=== PATIENT | female | born 1935 | race Caucasian/White ===

== ENCOUNTER 2016-11-15 15:00 | Outpatient (RCR) | payer MEDICARE, BC ==
[2016-09-21 06:21] VITALS: BP 114/56
[~2016-11-15 15:00] MED LIST: B-6100 MG PO; BIO-TN500 MCG PO; CALCIUM + D 6001 TA1 PO; COD LIVER OIL1 CAP PO; EVENING PRIMRO500 MG PO; FISH OIL1000 MG PO; FLUOROMETHOLONE OP; FLUOROMETHOLONE5 M1 OP; FOLIC ACID0.8 MG PO; GELATIN CAPSUL650 MG PO; HAIR, SKIN & N1 EACH PO; LUTEIN + KALE 11 CAP PO; MAGNESIUM500 MG PO; MASON NATURAL L20 MG PO; NORCO 325 MG-51 TAB PO; PREMARIN0.45 MG PO; ST. JOSEPH81 M2 PO; TIMOLOL OPHTHALMIC OU; TYLENOL 500MG500 MG PO; VIACTIV CALCIUM1 CTB PO; VITAMIN B-6100 MG PO; VITAMIN C PUR1000 MG PO; VITAMIN D31000 I1 PO; XARELTO10 MG PO; Xarelto PO; ZINC50 M1 PO; [UNRECOGNIZED DRUG - CODE] PO; [UNRECOGNIZED DRUG - OTHER]; [UNRECOGNIZED DRUG - OTHER] PO
== END 2016-11-28 08:00 | disposition home or self-care (01) ==
LOC: PT 15:00
DX: Z47.1 Aftercare following joint replacement surgery (principal); Z96.651 Presence of right artificial knee joint

== ENCOUNTER → 2017-01-22 | Day surgery (SDC) | payer MEDICARE, BC | LOC: MSO 07:41 | DX: K92.1 Melena (principal); K57.31 Diverticulosis of large intestine without perforation or abscess with bleeding | CPT/HCPCS: 00810; J7120 ==

== ENCOUNTER → 2017-10-11 | Outpatient (CLI) | payer MEDICARE, BC ==
[2016-09-21 06:21] VITALS: BP 114/56
[2017-10-11 16:24] LABS: ALBUMIN 4.2 g/dL (3.5-5.0); BUN/CREATININE RATIO 40.3 (6.0-26.0); CALCIUM 9.5 mg/dL (8.4-10.2); POTASSIUM 4.2 mmol/L (3.6-5.0); TOTAL BILIRUBIN 0.8 mg/dL (0.2-1.3); TOTAL PROTEIN 7.7 g/dL (6.3-8.2)
[2017-10-11 16:26] LABS: HEMATOCRIT 44.5 % (37.0-47.0); HEMOGLOBIN 14.4 g/dL (12.5-16.0); MEAN CELL VOLUME 91 fl (78-100); MEAN CORPUSCULAR HEMOGLOBIN 29 pg (27-31); MEAN CORPUSCULAR HGB CONC 32 g/dL (33-37); MEAN PLATELET VOLUME 10.6 fl (7.4-10.4); PLATELET COUNT 247 K/mm3 (130-400); RED BLOOD COUNT 4.91 M/mm3 (4.10-5.30); RED CELL DISTRIBUTION WIDTH 14.2 % (11.5-14.5); WHITE BLOOD COUNT 6.6 K/mm3 (4.8-10.8)
[2017-10-11 18:03] LABS: LYMPHOCYTE 41 % (20-51); MONOCYTE 10 % (3-10); NEUTROPHILS 47 % (42-75)
== END ==
LOC: LAB 15:54
PROVIDERS: Internal Medicine
DX: M85.80 Other specified disorders of bone density and structure, unspecified site (principal); E05.90 Thyrotoxicosis, unspecified without thyrotoxic crisis or storm; E78.5 Hyperlipidemia, unspecified

== ENCOUNTER → 2018-10-14 | Outpatient (CLI) | payer MEDICARE, BC ==
[2016-09-21 06:21] VITALS: BP 114/56
[2018-10-14 09:35] LABS: BASO # 0.1 (0.02-0.10); EOS # 0.2 (0.04-0.40); EOS % 3.7 % (1.0-5.0); HEMATOCRIT 44.3 % (37.0-47.0); HEMOGLOBIN 14.2 g/dL (12.5-16.0); LYMPH# 1.9 (1.50-4.00); MEAN CELL VOLUME 91 fl (78-100); MEAN CORPUSCULAR HEMOGLOBIN 29 pg (27-31); MEAN CORPUSCULAR HGB CONC 32 g/dL (33-37); MEAN PLATELET VOLUME 10.6 fl (7.4-10.4); MONO # 0.8 (0.20-0.80); NEU # 3.6 (1.40-6.50); PLATELET COUNT 215 K/mm3 (130-400); RED BLOOD COUNT 4.89 M/mm3 (4.10-5.30); RED CELL DISTRIBUTION WIDTH 14.5 % (11.5-14.5); WHITE BLOOD COUNT 6.5 K/mm3 (4.8-10.8)
[2018-10-14 09:43] LABS: ALBUMIN 4.4 g/dL (3.5-5.0); CALCIUM 9.7 mg/dL (8.4-10.2); POTASSIUM 4.2 mmol/L (3.6-5.0); TOTAL PROTEIN 7.4 g/dL (6.3-8.2)
[2018-10-14 10:44] LABS: ERYTHROCYTE SEDIMENTATION RATE 13 mm/hr (0-30)
== END ==
LOC: LAB 09:16
PROVIDERS: Internal Medicine
DX: E78.2 Mixed hyperlipidemia (principal); M85.80 Other specified disorders of bone density and structure, unspecified site; E05.90 Thyrotoxicosis, unspecified without thyrotoxic crisis or storm

== ENCOUNTER → 2018-11-07 | Outpatient (CLI) | payer MEDICARE, BC ==
[2016-09-21 06:21] VITALS: BP 114/56
[2018-11-07 08:52] LABS: HEMATOCRIT 41.8 % (37.0-47.0); HEMOGLOBIN 13.4 g/dL (12.5-16.0); MEAN CELL VOLUME 92 fl (78-100); MEAN CORPUSCULAR HEMOGLOBIN 30 pg (27-31); MEAN CORPUSCULAR HGB CONC 32 g/dL (33-37); MEAN PLATELET VOLUME 10.6 fl (7.4-10.4); PLATELET COUNT 235 K/mm3 (130-400); RED BLOOD COUNT 4.53 M/mm3 (4.10-5.30); RED CELL DISTRIBUTION WIDTH 14.6 % (11.5-14.5); WHITE BLOOD COUNT 9.5 K/mm3 (4.8-10.8)
[2018-11-07 09:17] LABS: ALBUMIN 3.7 g/dL (3.5-5.0); CALCIUM 8.9 mg/dL (8.4-10.2); POTASSIUM 4.2 mmol/L (3.6-5.0); TOTAL BILIRUBIN 0.8 mg/dL (0.2-1.3); TOTAL PROTEIN 6.7 g/dL (6.3-8.2)
[2018-11-07 09:23] LABS: URINE APPEARANCE CLEAR; URINE COLOR YELLOW
[2018-11-07 09:24] LABS: URINE BILIRUBIN NEGATIVE (NEGATIVE); URINE BLOOD NEGATIVE (NEGATIVE); URINE GLUCOSE NEGATIVE (NEGATIVE); URINE KETONE NEGATIVE (NEGATIVE); URINE LEUKOCYTE ESTERASE NEGATIVE (NEGATIVE); URINE MUCUS PRESENT (NOT PRESENT); URINE NITRATE NEGATIVE (NEGATIVE); URINE PROTEIN(semi-quant) TRACE mg/dL (NEGATIVE); URINE UROBILINOGEN NORMAL (NORMAL)
[2018-11-07 10:03] LABS: LYMPHOCYTE 15 % (20-51); MONOCYTE 15 % (3-10); NEUTROPHILS 70 % (42-75)
== END ==
LOC: LAB 08:33
PROVIDERS: Internal Medicine
DX: R10.84 Generalized abdominal pain (principal)

== ENCOUNTER 2018-12-24 07:15 | Emergency (ER) | payer MEDICARE, BC ==
[~2018-12-24 07:15] MED LIST changes: -BIO-TN500 MCG PO; +BIOTIN5000 MC1 PO; +PHARMASSURE ZIN50 MG PO; +VITAMIN A8000 UNIT; -ZINC50 M1 PO; -[UNRECOGNIZED DRUG - CODE] PO
[2018-12-24 08:08] LABS: ALBUMIN 3.9 g/dL (3.5-5.0); HEMATOCRIT 42.9 % (37.0-47.0); HEMOGLOBIN 13.8 g/dL (12.5-16.0); MEAN CELL VOLUME 89 fl (78-100); MEAN CORPUSCULAR HEMOGLOBIN 29 pg (27-31); MEAN CORPUSCULAR HGB CONC 32 g/dL (33-37); MEAN PLATELET VOLUME 9.9 fl (7.4-10.4); PLATELET COUNT 248 K/mm3 (130-400); POTASSIUM 4.4 mmol/L (3.6-5.0); RED BLOOD COUNT 4.82 M/mm3 (4.10-5.30); RED CELL DISTRIBUTION WIDTH 13.9 % (11.5-14.5); TOTAL BILIRUBIN 0.5 mg/dL (0.2-1.3); TOTAL PROTEIN 7.2 g/dL (6.3-8.2); WHITE BLOOD COUNT 5.6 K/mm3 (4.8-10.8)
[2018-12-24 08:09] LABS: LYMPHOCYTE 34 % (20-51); MONOCYTE 8 % (3-10); NEUTROPHILS 53 % (42-75)
[2018-12-24 08:30] LABS: URINE APPEARANCE CLEAR; URINE BILIRUBIN NEGATIVE (NEGATIVE); URINE BLOOD NEGATIVE (NEGATIVE); URINE COLOR YELLOW; URINE GLUCOSE NEGATIVE (NEGATIVE); URINE KETONE SMALL (NEGATIVE); URINE LEUKOCYTE ESTERASE NEGATIVE (NEGATIVE); URINE NITRATE NEGATIVE (NEGATIVE); URINE PROTEIN(semi-quant) TRACE mg/dL (NEGATIVE); URINE UROBILINOGEN NORMAL (NORMAL); URINE WBC 0-1 /hpf (0-3)
[2018-12-24] MEDS ORDERED: LEVOFLOXACIN500 M1 PO (08:50)
[2018-12-24] MEDS ORDERED: ASPIR LOW81 MG PO (08:58)
[2018-12-24] MEDS ORDERED: TESSALON PERLE100 M1 PO (09:43)
[2018-12-24 10:10] VITALS: BP 122/67
== END 2018-12-24 10:10 | disposition home or self-care (01) ==
LOC: ED 07:15
PROVIDERS: Physician Assistant
DX: R07.89 Other chest pain (principal); H40.9 Unspecified glaucoma; Z79.82 Long term (current) use of aspirin; Z87.891 Personal history of nicotine dependence; Z96.653 Presence of artificial knee joint, bilateral; Z90.49 Acquired absence of other specified parts of digestive tract; Z90.710 Acquired absence of both cervix and uterus
CPT/HCPCS: J1885

== ENCOUNTER → 2019-10-16 | Outpatient (CLI) | payer MEDICARE, BC ==
[~2019-10-16] MED LIST changes: +ASPIR LOW81 MG PO; +LEVOFLOXACIN500 M1 PO; +TESSALON PERLE100 M1 PO
[2019-10-16 10:04] LABS: BASO # 0.1 (0.02-0.10); EOS # 0.1 (0.04-0.40); EOS % 2.2 % (1.0-5.0); HEMATOCRIT 44.4 % (37.0-47.0); HEMOGLOBIN 14.3 g/dL (12.5-16.0); LYMPH# 1.7 (1.50-4.00); MEAN CELL VOLUME 90 fl (78-100); MEAN CORPUSCULAR HEMOGLOBIN 29 pg (27-31); MEAN CORPUSCULAR HGB CONC 32 g/dL (33-37); MEAN PLATELET VOLUME 10.3 fl (7.4-10.4); MONO # 0.6 (0.20-0.80); NEU # 3.9 (1.40-6.50); PLATELET COUNT 223 K/mm3 (130-400); RED BLOOD COUNT 4.91 M/mm3 (4.10-5.30); RED CELL DISTRIBUTION WIDTH 14.1 % (11.5-14.5); WHITE BLOOD COUNT 6.5 K/mm3 (4.8-10.8)
[2019-10-16 10:37] LABS: POTASSIUM 4.2 mmol/L (3.5-5.1)
[2019-10-16 10:38] LABS: ALBUMIN 4.1 g/dL (3.4-4.8)
[2019-10-16 10:40] LABS: TOTAL PROTEIN 7.3 g/dL (6.2-8.1)
[2019-10-16 10:42] LABS: TOTAL BILIRUBIN 0.9 mg/dL (0.2-1.2)
[2019-10-16 11:18] LABS: ERYTHROCYTE SEDIMENTATION RATE 10 mm/hr (0-30)
== END ==
LOC: LAB 09:51
PROVIDERS: Internal Medicine
DX: E78.2 Mixed hyperlipidemia (principal); E05.90 Thyrotoxicosis, unspecified without thyrotoxic crisis or storm; M85.80 Other specified disorders of bone density and structure, unspecified site

== ENCOUNTER → 2019-12-31 | Outpatient (CLI) | payer MEDICARE, BC | LOC: MAMMO 12-16 09:15 | DX: M85.80 Other specified disorders of bone density and structure, unspecified site (principal) ==

== ENCOUNTER → 2020-04-29 | Outpatient (CLI) | payer MEDICARE, BC ==
[2020-04-29 12:32] LABS: HEMATOCRIT 42.9 % (37.0-47.0); HEMOGLOBIN 13.6 g/dL (12.5-16.0); MEAN CELL VOLUME 92 fl (78-100); MEAN CORPUSCULAR HEMOGLOBIN 29 pg (27-31); MEAN CORPUSCULAR HGB CONC 32 g/dL (33-37); MEAN PLATELET VOLUME 11.1 fl (7.4-10.4); PLATELET COUNT 234 K/mm3 (130-400); RED BLOOD COUNT 4.68 M/mm3 (4.10-5.30); RED CELL DISTRIBUTION WIDTH 14.3 % (11.5-14.5); WHITE BLOOD COUNT 8.2 K/mm3 (4.8-10.8)
[2020-04-29 12:36] LABS: ALBUMIN 3.7 g/dL (3.4-4.8)
[2020-04-29 12:38] LABS: CALCIUM 9.1 mg/dL (8.3-10.5)
[2020-04-29 12:41] LABS: TOTAL BILIRUBIN 0.8 mg/dL (0.2-1.2)
[2020-04-29 13:01] LABS: LYMPHOCYTE 22 % (20-51); MONOCYTE 19 % (3-10); NEUTROPHILS 54 % (42-75)
== END ==
LOC: LAB 11:21
PROVIDERS: Nurse Practitioner Family
DX: R53.83 Other fatigue (principal); R50.9 Fever, unspecified; Z20.828 Contact with and (suspected) exposure to other viral communicable diseases

== ENCOUNTER → 2020-05-03 | Outpatient (CLI) | payer MEDICARE, BC ==
[2020-05-03 11:06] LABS: HEMATOCRIT 41.1 % (37.0-47.0); MEAN CELL VOLUME 92 fl (78-100); MEAN CORPUSCULAR HEMOGLOBIN 29 pg (27-31); MEAN CORPUSCULAR HGB CONC 32 g/dL (33-37); PLATELET COUNT 278 K/mm3 (130-400); RED BLOOD COUNT 4.48 M/mm3 (4.10-5.30); RED CELL DISTRIBUTION WIDTH 13.8 % (11.5-14.5); WHITE BLOOD COUNT 8.1 K/mm3 (4.8-10.8)
[2020-05-03 11:19] LABS: ALBUMIN 3.6 g/dL (3.4-4.8); POTASSIUM 4.5 mmol/L (3.5-5.1)
[2020-05-03 11:21] LABS: CALCIUM 9.1 mg/dL (8.3-10.5)
[2020-05-03 11:22] LABS: TOTAL PROTEIN 7.1 g/dL (6.2-8.1)
[2020-05-03 11:24] LABS: TOTAL BILIRUBIN 0.5 mg/dL (0.2-1.2)
[2020-05-03 11:39] LABS: URINE APPEARANCE CLOUDY; URINE BILIRUBIN NEGATIVE (NEGATIVE); URINE BLOOD NEGATIVE (NEGATIVE); URINE COLOR YELLOW; URINE GLUCOSE NEGATIVE (NEGATIVE); URINE KETONE NEGATIVE (NEGATIVE); URINE LEUKOCYTE ESTERASE NEGATIVE (NEGATIVE); URINE MUCUS PRESENT (NOT PRESENT); URINE NITRATE NEGATIVE (NEGATIVE); URINE PROTEIN(semi-quant) NEGATIVE (NEGATIVE); URINE UROBILINOGEN NORMAL (NORMAL)
[2020-05-03 12:19] LABS: ERYTHROCYTE SEDIMENTATION RATE 46 mm/hr (0-30)
[2020-05-03 14:11] LABS: LYMPHOCYTE 14 % (20-51); MONOCYTE 13 % (3-10); NEUTROPHILS 68 % (42-75)
== END ==
LOC: LAB 10:46
PROVIDERS: Internal Medicine
DX: R50.9 Fever, unspecified (principal); R06.02 Shortness of breath; R07.9 Chest pain, unspecified

== ENCOUNTER → 2020-07-01 | Outpatient (CLI) | payer MEDICARE, BC | LOC: RAD 16:03 | DX: M19.90 Unspecified osteoarthritis, unspecified site (principal) ==

== ENCOUNTER → 2020-10-18 | Outpatient (CLI) | payer MEDICARE, BC ==
[2020-07-11 09:01] VITALS: BP 137/78
[~2020-10-18] MED LIST changes: -ASPIR LOW81 MG PO; +ASPIRIN E.C. 8181 MG PO; +CALCIUM CITRATE1 TA1 PO; -EVENING PRIMRO500 MG PO; +LATANOPROST 2.2.5 ML OD; +MAGNESIUM OXID500 MG PO; -MAGNESIUM500 MG PO; +OR USE ONLY TIMO OU; -TIMOLOL OPHTHALMIC OU; -VITAMIN B-6100 MG PO; +VITAMIN B-625 M1; +[UNRECOGNIZED DRUG - OTHER]
[2020-10-18 10:37] LABS: POTASSIUM 4.1 mmol/L (3.5-5.1)
[2020-10-18 10:38] LABS: ALBUMIN 3.8 g/dL (3.4-4.8); EOS # 0.2 (0.04-0.40); EOS % 3.7 % (1.0-5.0); HEMATOCRIT 43.2 % (37.0-47.0); HEMOGLOBIN 13.3 g/dL (12.5-16.0); LYMPH# 1.6 (1.50-4.00); MEAN CELL VOLUME 91 fl (78-100); MEAN CORPUSCULAR HEMOGLOBIN 28 pg (27-31); MEAN CORPUSCULAR HGB CONC 31 g/dL (33-37); MEAN PLATELET VOLUME 10.8 fl (7.4-10.4); MONO # 0.6 (0.20-0.80); NEU # 3.5 (1.40-6.50); PLATELET COUNT 202 K/mm3 (130-400); RED BLOOD COUNT 4.73 M/mm3 (4.10-5.30); RED CELL DISTRIBUTION WIDTH 15.9 % (11.5-14.5)
[2020-10-18 10:39] LABS: CALCIUM 8.9 mg/dL (8.3-10.5)
[2020-10-18 10:40] LABS: TOTAL PROTEIN 6.6 g/dL (6.2-8.1)
[2020-10-18 10:42] LABS: TOTAL BILIRUBIN 0.6 mg/dL (0.2-1.2)
== END ==
LOC: LAB 09:50
PROVIDERS: Internal Medicine
DX: M85.80 Other specified disorders of bone density and structure, unspecified site (principal); E78.2 Mixed hyperlipidemia; E05.90 Thyrotoxicosis, unspecified without thyrotoxic crisis or storm

== ENCOUNTER 2020-10-26 08:48 | Outpatient (RCR) | payer MEDICARE, BC ==
[2020-07-11 09:01] VITALS: BP 137/78
== END 2020-11-15 | disposition home or self-care (01) ==
LOC: PT
DX: L57.0 Actinic keratosis (principal); R26.81 Unsteadiness on feet; R39.15 Urgency of urination

== ENCOUNTER → 2020-12-17 | Outpatient (CLI) | payer MEDICARE, BC ==
[2020-07-11 09:01] VITALS: BP 137/78
[2020-12-17 10:29] LABS: HEMOGLOBIN 14.5 g/dL (12.5-16.0); MEAN CELL VOLUME 93 fl (78-100); MEAN CORPUSCULAR HEMOGLOBIN 29 pg (27-31); MEAN CORPUSCULAR HGB CONC 32 g/dL (33-37); MEAN PLATELET VOLUME 10.1 fl (7.4-10.4); PLATELET COUNT 225 K/mm3 (130-400); RED BLOOD COUNT 4.97 M/mm3 (4.10-5.30); RED CELL DISTRIBUTION WIDTH 14.9 % (11.5-14.5); WHITE BLOOD COUNT 10.9 K/mm3 (4.8-10.8)
[2020-12-17 10:38] LABS: ALBUMIN 4.1 g/dL (3.4-4.8); POTASSIUM 3.8 mmol/L (3.5-5.1)
[2020-12-17 10:39] LABS: CALCIUM 9.1 mg/dL (8.3-10.5)
[2020-12-17 10:40] LABS: TOTAL PROTEIN 7.5 g/dL (6.2-8.1)
[2020-12-17 10:42] LABS: TOTAL BILIRUBIN 1.1 mg/dL (0.2-1.2)
[2020-12-17 10:57] LABS: URINE APPEARANCE CLOUDY; URINE COLOR YELLOW
[2020-12-17 10:58] LABS: URINE BILIRUBIN NEGATIVE (NEGATIVE); URINE BLOOD 250 ery/uL (NEGATIVE); URINE GLUCOSE NEGATIVE (NEGATIVE); URINE KETONE NEGATIVE (NEGATIVE); URINE LEUKOCYTE ESTERASE 2+ (NEGATIVE); URINE NITRATE POSITIVE (NEGATIVE); URINE PROTEIN(semi-quant) 1+ mg/dL (NEGATIVE); URINE UROBILINOGEN NORMAL (NORMAL); URINE WBC >50 /hpf (0-3)
[2020-12-17 11:10] LABS: LYMPHOCYTE 16 % (20-51); MONOCYTE 13 % (3-10); NEUTROPHILS 71 % (42-75); SPHEROCYTE 1+; TEAR DROP CELLS 2+
== END ==
LOC: LAB 10:15
PROVIDERS: Internal Medicine
DX: R50.9 Fever, unspecified (principal)

== ENCOUNTER → 2021-03-16 | Outpatient (CLI) | payer MEDICARE, BC ==
[2020-07-11 09:01] VITALS: BP 137/78
== END ==
LOC: RAD 12:20
DX: M79.672 Pain in left foot (principal)

== ENCOUNTER → 2021-10-21 | Outpatient (CLI) | payer MEDICARE, BC ==
[2021-10-21 10:08] LABS: BASO # 0.05 K/mm3 (0.02-0.10); EOS # 0.23 K/mm3 (0.04-0.40); EOS % 3.3 % (1.0-5.0); HEMATOCRIT 46.8 % (37.0-47.0); HEMOGLOBIN 14.5 g/dL (12.5-16.0); LYMPH# 1.67 K/mm3 (1.50-4.00); MEAN CELL VOLUME 93 fl (78-100); MEAN CORPUSCULAR HEMOGLOBIN 29 pg (27-31); MEAN CORPUSCULAR HGB CONC 31 g/dL (33-37); MONO # 0.79 K/mm3 (0.20-0.80); NEU # 4.16 K/mm3 (1.40-6.50); PLATELET COUNT 233 K/mm3 (130-400); RED BLOOD COUNT 5.02 M/mm3 (4.10-5.30); RED CELL DISTRIBUTION WIDTH 14.1 % (11.5-14.5); WHITE BLOOD COUNT 6.9 K/mm3 (4.8-10.8)
[2021-10-21 10:17] LABS: POTASSIUM 4.4 mmol/L (3.5-5.1)
[2021-10-21 10:19] LABS: CALCIUM 9.5 mg/dL (8.3-10.5)
[2021-10-21 10:20] LABS: TOTAL PROTEIN 7.7 g/dL (6.2-8.1)
[2021-10-21 10:22] LABS: TOTAL BILIRUBIN 0.8 mg/dL (0.2-1.2)
== END ==
LOC: LAB 09:50
PROVIDERS: Internal Medicine
DX: Z12.11 Encounter for screening for malignant neoplasm of colon (principal); E05.90 Thyrotoxicosis, unspecified without thyrotoxic crisis or storm; M85.80 Other specified disorders of bone density and structure, unspecified site; E78.2 Mixed hyperlipidemia

== ENCOUNTER → 2021-10-26 | Outpatient (CLI) | payer MEDICARE, BC | LOC: RAD 09:56 | DX: M19.011 Primary osteoarthritis, right shoulder (principal) ==

== ENCOUNTER → 2021-11-21 | Outpatient (CLI) | payer MEDICARE, BC | LOC: LAB 09:56 | DX: Z12.11 Encounter for screening for malignant neoplasm of colon (principal) ==

== ENCOUNTER → 2021-12-20 | Outpatient (CLI) | payer MEDICARE, BC | LOC: RAD 10:39 → MAMMO 10:45 | DX: M81.0 Age-related osteoporosis without current pathological fracture (principal); M85.80 Other specified disorders of bone density and structure, unspecified site; Z78.0 Asymptomatic menopausal state ==

== ENCOUNTER 2022-01-04 09:20 | Emergency (ER) | payer MEDICARE, BC ==
[~2022-01-04] VITALS: Ht 162.6 cm; Wt 80.8 kg
[~2022-01-04 09:20] MED LIST changes: +PHARMASSURE VI100 MG PO; -PHARMASSURE ZIN50 MG PO; +VITAMIN A2400 MCG PO; -VITAMIN A8000 UNIT; -VITAMIN B-625 M1; +ZINC-22050 MG PO; -[UNRECOGNIZED DRUG - OTHER]; +[UNRECOGNIZED DRUG - OTHER] PO
[2022-01-04] MEDS ORDERED: MULTI-VITAMIN1 EACH PO (09:58)
[2022-01-04 10:55] LABS: HEMATOCRIT 43.7 % (37.0-47.0); HEMOGLOBIN 13.9 g/dL (12.5-16.0)
[2022-01-04 11:47] VITALS: BP 136/68
== END 2022-01-04 11:47 | disposition home or self-care (01) ==
LOC: ED 09:20
PROVIDERS: Family Medicine
DX: R04.0 Epistaxis (principal)

== ENCOUNTER → 2022-01-30 | Outpatient (CLI) | payer MEDICARE, BC ==
[~2022-01-30] MED LIST changes: +MULTI-VITAMIN1 EACH PO
== END ==
LOC: RAD 11:17
DX: M51.34 Other intervertebral disc degeneration, thoracic region (principal); M41.84 Other forms of scoliosis, thoracic region

== ENCOUNTER 2022-02-06 11:00 | Outpatient (RCR) | payer MEDICARE, BC | END 2022-02-09 | disposition still patient (30) | LOC: PT | DX: M54.31 Sciatica, right side (principal) ==

== ENCOUNTER 2022-02-14 08:22 | Outpatient (RCR) | payer MEDICARE, BC | END 2022-02-28 17:00 | disposition still patient (30) | LOC: PT 08:22 | DX: M54.31 Sciatica, right side (principal) ==

== ENCOUNTER 2022-06-19 07:56 | Emergency (ER) | payer MEDICARE, BC ==
[~2022-06-19] VITALS: Ht 160 cm; Wt 74.2 kg
[2022-06-19 08:51] LABS: BASO # 0.05 K/mm3 (0.02-0.10); EOS # 0.15 K/mm3 (0.04-0.40); EOS % 2.5 % (1.0-5.0); LYMPH# 1.45 K/mm3 (1.50-4.00); MEAN CELL VOLUME 91 fl (78-100); MEAN CORPUSCULAR HEMOGLOBIN 29 pg (27-31); MEAN CORPUSCULAR HGB CONC 32 g/dL (33-37); MEAN PLATELET VOLUME 9.9 fl (7.4-10.4); MONO # 0.79 K/mm3 (0.20-0.80); NEU # 3.46 K/mm3 (1.40-6.50); PLATELET COUNT 232 K/mm3 (130-400); RED BLOOD COUNT 4.86 M/mm3 (4.10-5.30); RED CELL DISTRIBUTION WIDTH 14.3 % (11.5-14.5); WHITE BLOOD COUNT 5.9 K/mm3 (4.8-10.8)
[2022-06-19 09:28] LABS: CALCIUM 9.6 mg/dL (8.3-10.5)
[2022-06-19 09:30] LABS: TOTAL PROTEIN 7.4 g/dL (6.2-8.1)
[2022-06-19 09:31] LABS: TOTAL BILIRUBIN 0.9 mg/dL (0.2-1.2)
[2022-06-19 09:35] LABS: URINE APPEARANCE HAZY; URINE BILIRUBIN NEGATIVE (NEGATIVE); URINE COLOR YELLOW; URINE GLUCOSE NEGATIVE (NEGATIVE); URINE KETONE 1+ (NEGATIVE); URINE PROTEIN(semi-quant) NEGATIVE (NEGATIVE); URINE UROBILINOGEN NORMAL (NORMAL)
[2022-06-19 09:36] LABS: URINE BLOOD 250 ery/uL (NEGATIVE); URINE LEUKOCYTE ESTERASE TRACE (NEGATIVE); URINE NITRATE POSITIVE (NEGATIVE)
[2022-06-19] MEDS ORDERED: METRONIDAZOLE500 M1 PO (12:07)
[2022-06-19] MEDS ORDERED: CIPRO500 M1 PO (12:07)
[2022-06-19 12:20] VITALS: BP 144/78
== END 2022-06-19 12:20 | disposition home or self-care (01) ==
LOC: ED 07:56
PROVIDERS: Nurse Practitioner
DX: N39.0 Urinary tract infection, site not specified (principal); K57.32 Diverticulitis of large intestine without perforation or abscess without bleeding; R93.89 Abnormal findings on diagnostic imaging of other specified body structures; N28.89 Other specified disorders of kidney and ureter; E66.9 Obesity, unspecified; Z68.29 Body mass index [BMI] 29.0-29.9, adult; Z90.49 Acquired absence of other specified parts of digestive tract; Z88.0 Allergy status to penicillin
CPT/HCPCS: J7030; Q9967

== ENCOUNTER → 2022-06-22 | Outpatient (CLI) | payer MEDICARE, BC ==
[~2022-06-22] MED LIST changes: +CIPRO500 M1 PO; +METRONIDAZOLE500 M1 PO
== END ==
LOC: RAD 07:58
DX: R39.15 Urgency of urination (principal)

== ENCOUNTER → 2022-06-29 | Outpatient (CLI) | payer MEDICARE, BC ==
[~2022-06-29] VITALS: Ht 160 cm; Wt 74.2 kg
[2022-06-29 10:22] VITALS: BP 141/70
== END ==
LOC: AMSURD 06-27 09:12
DX: M85.80 Other specified disorders of bone density and structure, unspecified site (principal)
CPT/HCPCS: J3489

== ENCOUNTER → 2022-06-29 | Outpatient (CLI) | payer MEDICARE, BC | LOC: RAD 09:00 | DX: K57.30 Diverticulosis of large intestine without perforation or abscess without bleeding (principal); Z90.49 Acquired absence of other specified parts of digestive tract; N28.9 Disorder of kidney and ureter, unspecified | CPT/HCPCS: Q9967 ==

== ENCOUNTER → 2022-07-05 | Outpatient (CLI) | payer MEDICARE, BC | LOC: RAD 10:43 | DX: M19.012 Primary osteoarthritis, left shoulder (principal) ==

== ENCOUNTER 2022-12-11 08:42 | Emergency (ER) | payer MEDICARE, BC ==
[2022-12-11 09:49] LABS: HEMATOCRIT 43.3 % (37.0-47.0); HEMOGLOBIN 13.8 g/dL (12.5-16.0)
[2022-12-11 10:28] VITALS: BP 137/69
== END 2022-12-11 10:35 | disposition home or self-care (01) ==
LOC: ED 08:42
PROVIDERS: Nurse Practitioner
DX: R04.0 Epistaxis (principal); Z28.310 Unvaccinated for COVID-19

== ENCOUNTER → 2023-01-04 | Outpatient (CLI) | payer MEDICARE, BC ==
[~2023-01-04] MED LIST changes: +BACTRIM DS TAB1 EACH PO; +MACROBID 100 M100 MG PO
[2023-01-04 11:08] LABS: URINE APPEARANCE CLEAR; URINE BILIRUBIN NEGATIVE (NEGATIVE); URINE BLOOD NEGATIVE (NEGATIVE); URINE COLOR YELLOW; URINE GLUCOSE NEGATIVE (NEGATIVE); URINE KETONE NEGATIVE (NEGATIVE); URINE LEUKOCYTE ESTERASE NEGATIVE (NEGATIVE); URINE MUCUS PRESENT (NOT PRESENT); URINE NITRATE NEGATIVE (NEGATIVE); URINE PROTEIN(semi-quant) NEGATIVE (NEGATIVE); URINE UROBILINOGEN NORMAL (NORMAL); URINE WBC 0-1 /hpf (0-3)
== END ==
LOC: LAB 10:06
PROVIDERS: Internal Medicine
DX: N39.0 Urinary tract infection, site not specified (principal)

== ENCOUNTER → 2023-02-28 | Outpatient (CLI) | payer MEDICARE, BC | LOC: RAD 02-27 08:00 | DX: R93.422 Abnormal radiologic findings on diagnostic imaging of left kidney (principal); R04.2 Hemoptysis | CPT/HCPCS: Q9967 ==

== ENCOUNTER → 2023-07-25 | Outpatient (CLI) | payer MEDICARE, BC | LOC: RAD 08:00 → LAB 08:24 | DX: M25.572 Pain in left ankle and joints of left foot (principal) ==

== ENCOUNTER 2023-08-26 20:00 | Emergency (ER) | payer MEDICARE, BC ==
[~2023-08-26] VITALS: Ht 165.1 cm; Wt 71.8 kg
[2023-08-26 20:41] LABS: BASO # 0.04 K/mm3 (0.02-0.10); EOS # 0.19 K/mm3 (0.04-0.40); EOS % 2.8 % (1.0-5.0); HEMOGLOBIN 13.9 g/dL (12.5-16.0); LYMPH# 1.79 K/mm3 (1.50-4.00); MEAN CELL VOLUME 92 fl (78-100); MEAN CORPUSCULAR HEMOGLOBIN 30 pg (27-31); MEAN CORPUSCULAR HGB CONC 32 g/dL (33-37); MEAN PLATELET VOLUME 10.2 fl (7.4-10.4); NEU # 3.83 K/mm3 (1.40-6.50); PLATELET COUNT 204 K/mm3 (130-400); RED BLOOD COUNT 4.67 M/mm3 (4.10-5.30); RED CELL DISTRIBUTION WIDTH 14.4 % (11.5-14.5); WHITE BLOOD COUNT 6.9 K/mm3 (4.8-10.8)
[2023-08-26 20:49] LABS: ALBUMIN 3.8 g/dL (3.4-4.8)
[2023-08-26 20:50] LABS: POTASSIUM 3.8 mmol/L (3.5-5.1)
[2023-08-26 20:51] LABS: CALCIUM 9.3 mg/dL (8.3-10.5)
[2023-08-26 20:52] LABS: TOTAL PROTEIN 6.7 g/dL (6.2-8.1)
[2023-08-26 20:54] LABS: TOTAL BILIRUBIN 0.5 mg/dL (0.2-1.2)
[2023-08-26 21:04] LABS: PARTIAL THROMBOPLASTIN TIME 21.6 SECONDS (21.0-32.0); PROTHROMBIN TIME 10.1 SECONDS (9.0-12.0)
[2023-08-26 23:25] LABS: URINE APPEARANCE CLOUDY; URINE BILIRUBIN NEGATIVE (NEGATIVE); URINE COLOR YELLOW; URINE GLUCOSE NEGATIVE (NEGATIVE); URINE KETONE NEGATIVE (NEGATIVE); URINE PROTEIN(semi-quant) TRACE (NEGATIVE); URINE UROBILINOGEN NORMAL (NORMAL)
[2023-08-26 23:26] LABS: URINE BLOOD TRACE (NEGATIVE); URINE LEUKOCYTE ESTERASE 2+ (NEGATIVE); URINE NITRATE POSITIVE (NEGATIVE); URINE WBC >50 /hpf (0-3)
[2023-08-26 23:50] VITALS: BP 143/72
== END 2023-08-26 23:50 | disposition short-term general hospital (02) ==
LOC: ED 20:00
PROVIDERS: Physician Assistant
DX: S52.502A Unspecified fracture of the lower end of left radius, initial encounter for closed fracture (principal); E66.9 Obesity, unspecified; Z68.26 Body mass index [BMI] 26.0-26.9, adult; Z87.891 Personal history of nicotine dependence; W01.0XXA Fall on same level from slipping, tripping and stumbling without subsequent striking against object, initial encounter
CPT/HCPCS: J2405; J3010

== ENCOUNTER 2023-09-14 13:47 | Outpatient (RCR) | payer MEDICARE, BC | END 2023-10-11 | disposition home or self-care (01) | LOC: OT | DX: M19.072 Primary osteoarthritis, left ankle and foot (principal) ==

== ENCOUNTER → 2023-11-07 | Outpatient (CLI) | payer MEDICARE, BC ==
[~2023-11-07] VITALS: Ht 165.1 cm; Wt 72.7 kg
[2023-11-07 10:44] VITALS: BP 155/79
== END ==
LOC: AMSURD 10:07
DX: M85.80 Other specified disorders of bone density and structure, unspecified site (principal)
CPT/HCPCS: J3489

== ENCOUNTER → 2023-12-03 | Outpatient (CLI) | payer MEDICARE, BC | LOC: RAD 08:40 | DX: N28.89 Other specified disorders of kidney and ureter (principal); R59.0 Localized enlarged lymph nodes | CPT/HCPCS: Q9967 ==

== ENCOUNTER → 2024-01-25 | Outpatient (CLI) | payer MEDICARE, BC ==
[2024-01-25 09:50] LABS: BASO # 0.05 K/mm3 (0.02-0.10); EOS # 0.19 K/mm3 (0.04-0.40); EOS % 2.9 % (1.0-5.0); HEMATOCRIT 44.2 % (37.0-47.0); HEMOGLOBIN 13.9 g/dL (12.5-16.0); LYMPH# 1.74 K/mm3 (1.50-4.00); MEAN CELL VOLUME 91 fl (78-100); MEAN CORPUSCULAR HEMOGLOBIN 29 pg (27-31); MEAN CORPUSCULAR HGB CONC 31 g/dL (33-37); MEAN PLATELET VOLUME 10.3 fl (7.4-10.4); MONO # 0.96 K/mm3 (0.20-0.80); NEU # 3.57 K/mm3 (1.40-6.50); PLATELET COUNT 257 K/mm3 (130-400); RED BLOOD COUNT 4.87 M/mm3 (4.10-5.30); RED CELL DISTRIBUTION WIDTH 13.4 % (11.5-14.5); WHITE BLOOD COUNT 6.5 K/mm3 (4.8-10.8)
[2024-01-25 09:54] LABS: ALBUMIN 3.9 g/dL (3.4-4.8)
[2024-01-25 09:56] LABS: CALCIUM 9.9 mg/dL (8.3-10.5)
[2024-01-25 09:57] LABS: TOTAL PROTEIN 7.6 g/dL (6.2-8.1)
[2024-01-25 09:59] LABS: TOTAL BILIRUBIN 0.4 mg/dL (0.2-1.2)
== END ==
LOC: LAB 09:25
PROVIDERS: Internal Medicine
DX: C65.2 Malignant neoplasm of left renal pelvis (principal)

== ENCOUNTER → 2024-01-30 | Outpatient (CLI) | payer MEDICARE, BC | LOC: RAD 13:07 | DX: J43.9 Emphysema, unspecified (principal); T81.30XD Disruption of wound, unspecified, subsequent encounter; C65.2 Malignant neoplasm of left renal pelvis; Z90.5 Acquired absence of kidney ==

== ENCOUNTER → 2024-02-07 | Outpatient (CLI) | payer MEDICARE, BC ==
[2024-02-07 14:33] LABS: BASO # 0.05 K/mm3 (0.02-0.10); EOS # 0.28 K/mm3 (0.04-0.40); EOS % 5.5 % (1.0-5.0); HEMOGLOBIN 12.8 g/dL (12.5-16.0); MEAN CELL VOLUME 91 fl (78-100); MEAN CORPUSCULAR HEMOGLOBIN 28 pg (27-31); MEAN CORPUSCULAR HGB CONC 31 g/dL (33-37); MEAN PLATELET VOLUME 9.9 fl (7.4-10.4); MONO # 0.77 K/mm3 (0.20-0.80); NEU # 2.25 K/mm3 (1.40-6.50); PLATELET COUNT 179 K/mm3 (130-400); RED BLOOD COUNT 4.51 M/mm3 (4.10-5.30); WHITE BLOOD COUNT 5.1 K/mm3 (4.8-10.8)
[2024-02-07 14:45] LABS: ALBUMIN 3.7 g/dL (3.4-4.8)
[2024-02-07 14:46] LABS: CALCIUM 9.3 mg/dL (8.3-10.5)
[2024-02-07 14:48] LABS: TOTAL PROTEIN 6.8 g/dL (6.2-8.1)
[2024-02-07 14:49] LABS: TOTAL BILIRUBIN 0.5 mg/dL (0.2-1.2)
== END ==
LOC: LAB 14:15
PROVIDERS: Internal Medicine
DX: C65.2 Malignant neoplasm of left renal pelvis (principal)

== ENCOUNTER → 2024-02-21 | Outpatient (CLI) | payer MEDICARE, BC ==
[2024-02-21 16:13] LABS: BASO # 0.06 K/mm3 (0.02-0.10); EOS # 0.28 K/mm3 (0.04-0.40); EOS % 4.8 % (1.0-5.0); HEMATOCRIT 42.5 % (37.0-47.0); HEMOGLOBIN 13.2 g/dL (12.5-16.0); LYMPH# 1.65 K/mm3 (1.50-4.00); MEAN CELL VOLUME 91 fl (78-100); MEAN CORPUSCULAR HEMOGLOBIN 28 pg (27-31); MEAN CORPUSCULAR HGB CONC 31 g/dL (33-37); MEAN PLATELET VOLUME 10.3 fl (7.4-10.4); MONO # 0.96 K/mm3 (0.20-0.80); NEU # 2.87 K/mm3 (1.40-6.50); PLATELET COUNT 210 K/mm3 (130-400); RED BLOOD COUNT 4.67 M/mm3 (4.10-5.30); RED CELL DISTRIBUTION WIDTH 14.4 % (11.5-14.5); WHITE BLOOD COUNT 5.8 K/mm3 (4.8-10.8)
[2024-02-21 16:20] LABS: ALBUMIN 3.9 g/dL (3.4-4.8)
[2024-02-21 16:22] LABS: CALCIUM 9.6 mg/dL (8.3-10.5)
[2024-02-21 16:23] LABS: TOTAL PROTEIN 6.7 g/dL (6.2-8.1)
[2024-02-21 16:25] LABS: TOTAL BILIRUBIN 0.5 mg/dL (0.2-1.2)
== END ==
LOC: LAB 16:01
PROVIDERS: Internal Medicine
DX: C65.2 Malignant neoplasm of left renal pelvis (principal)

== ENCOUNTER → 2024-03-13 | Outpatient (CLI) | payer MEDICARE, BC ==
[2024-03-13 15:36] LABS: BASO # 0.05 K/mm3 (0.02-0.10); EOS # 0.16 K/mm3 (0.04-0.40); HEMATOCRIT 41.5 % (37.0-47.0); HEMOGLOBIN 12.9 g/dL (12.5-16.0); LYMPH# 1.74 K/mm3 (1.50-4.00); MEAN CELL VOLUME 90 fl (78-100); MEAN CORPUSCULAR HEMOGLOBIN 28 pg (27-31); MEAN CORPUSCULAR HGB CONC 31 g/dL (33-37); MONO # 0.79 K/mm3 (0.20-0.80); NEU # 2.58 K/mm3 (1.40-6.50); PLATELET COUNT 265 K/mm3 (130-400); RED BLOOD COUNT 4.62 M/mm3 (4.10-5.30); RED CELL DISTRIBUTION WIDTH 14.4 % (11.5-14.5); WHITE BLOOD COUNT 5.3 K/mm3 (4.8-10.8)
[2024-03-13 15:45] LABS: ALBUMIN 3.9 g/dL (3.4-4.8)
[2024-03-13 15:47] LABS: CALCIUM 9.5 mg/dL (8.3-10.5)
[2024-03-13 15:48] LABS: TOTAL PROTEIN 7.3 g/dL (6.2-8.1)
[2024-03-13 15:50] LABS: TOTAL BILIRUBIN 0.6 mg/dL (0.2-1.2)
== END ==
LOC: LAB 15:21
PROVIDERS: Internal Medicine
DX: C65.2 Malignant neoplasm of left renal pelvis (principal)

== ENCOUNTER → 2024-03-27 | Outpatient (CLI) | payer MEDICARE, BC ==
[2024-05-13 12:56] LABS: CALCIUM 10.1 mg/dL (8.3-10.5); TOTAL BILIRUBIN 0.6 mg/dL (0.2-1.2); TOTAL PROTEIN 7.3 g/dL (6.2-8.1)
[2024-05-13 12:58] LABS: BASO # 0.06 K/mm3 (0.02-0.10); EOS # 0.25 K/mm3 (0.04-0.40); EOS % 4.5 % (1.0-5.0); HEMATOCRIT 44.1 % (37.0-47.0); HEMOGLOBIN 13.9 g/dL (12.5-16.0); LYMPH# 1.76 K/mm3 (1.50-4.00); MEAN CELL VOLUME 90 fl (78-100); MEAN CORPUSCULAR HEMOGLOBIN 28 pg (27-31); MEAN CORPUSCULAR HGB CONC 32 g/dL (33-37); MEAN PLATELET VOLUME 10.6 fl (7.4-10.4); NEU # 2.74 K/mm3 (1.40-6.50); PLATELET COUNT 225 K/mm3 (130-400); RED BLOOD COUNT 4.92 M/mm3 (4.10-5.30); RED CELL DISTRIBUTION WIDTH 14.5 % (11.5-14.5); WHITE BLOOD COUNT 5.6 K/mm3 (4.8-10.8)
== END ==
LOC: LAB 08:00
PROVIDERS: Internal Medicine
DX: C65.2 Malignant neoplasm of left renal pelvis (principal)

== ENCOUNTER → 2024-04-10 | Outpatient (CLI) | payer MEDICARE, BC ==
[2024-05-29 10:19] LABS: ALBUMIN 3.8 g/dL (3.4-4.8); CALCIUM 9.5 mg/dL (8.3-10.5); TOTAL BILIRUBIN 0.5 mg/dL (0.2-1.2)
[2024-05-29 10:41] LABS: BASO # 0.08 K/mm3 (0.02-0.10); EOS # 0.27 K/mm3 (0.04-0.40); EOS % 5.4 % (1.0-5.0); HEMATOCRIT 41.7 % (37.0-47.0); LYMPH# 1.55 K/mm3 (1.50-4.00); MEAN CELL VOLUME 90 fl (78-100); MEAN CORPUSCULAR HEMOGLOBIN 28 pg (27-31); MEAN CORPUSCULAR HGB CONC 31 g/dL (33-37); MEAN PLATELET VOLUME 10.1 fl (7.4-10.4); NEU # 2.53 K/mm3 (1.40-6.50); PLATELET COUNT 177 K/mm3 (130-400); RED BLOOD COUNT 4.63 M/mm3 (4.10-5.30); RED CELL DISTRIBUTION WIDTH 14.5 % (11.5-14.5)
== END ==
LOC: LAB 13:15
PROVIDERS: Internal Medicine
DX: C65.2 Malignant neoplasm of left renal pelvis (principal)

== ENCOUNTER → 2024-04-24 | Outpatient (CLI) | payer MEDICARE, BC ==
[2024-04-24 13:27] LABS: BASO # 0.08 K/mm3 (0.02-0.10); EOS # 0.37 K/mm3 (0.04-0.40); EOS % 6.4 % (1.0-5.0); HEMATOCRIT 40.3 % (37.0-47.0); HEMOGLOBIN 12.8 g/dL (12.5-16.0); MEAN CELL VOLUME 89 fl (78-100); MEAN CORPUSCULAR HEMOGLOBIN 28 pg (27-31); MEAN CORPUSCULAR HGB CONC 32 g/dL (33-37); MEAN PLATELET VOLUME 9.4 fl (7.4-10.4); MONO # 0.86 K/mm3 (0.20-0.80); NEU # 2.67 K/mm3 (1.40-6.50); PLATELET COUNT 181 K/mm3 (130-400); RED BLOOD COUNT 4.53 M/mm3 (4.10-5.30); RED CELL DISTRIBUTION WIDTH 14.6 % (11.5-14.5); WHITE BLOOD COUNT 5.8 K/mm3 (4.8-10.8)
[2024-04-24 13:39] LABS: ALBUMIN 3.9 g/dL (3.4-4.8)
[2024-04-24 13:40] LABS: CALCIUM 9.3 mg/dL (8.3-10.5)
[2024-04-24 13:41] LABS: TOTAL PROTEIN 6.9 g/dL (6.2-8.1)
[2024-04-24 13:43] LABS: TOTAL BILIRUBIN 0.6 mg/dL (0.2-1.2)
== END ==
LOC: LAB 13:14
PROVIDERS: Internal Medicine
DX: C65.2 Malignant neoplasm of left renal pelvis (principal)

== ENCOUNTER → 2024-06-19 | Outpatient (CLI) | payer MEDICARE ==
[2024-06-19 11:17] LABS: BASO # 0.07 K/mm3 (0.02-0.10); EOS % 5.1 % (1.0-5.0); HEMATOCRIT 41.4 % (37.0-47.0); HEMOGLOBIN 12.9 g/dL (12.5-16.0); LYMPH# 1.53 K/mm3 (1.50-4.00); MEAN CELL VOLUME 92 fl (78-100); MEAN CORPUSCULAR HEMOGLOBIN 29 pg (27-31); MEAN CORPUSCULAR HGB CONC 31 g/dL (33-37); MEAN PLATELET VOLUME 9.6 fl (7.4-10.4); MONO # 0.72 K/mm3 (0.20-0.80); NEU # 3.23 K/mm3 (1.40-6.50); PLATELET COUNT 156 K/mm3 (130-400); RED BLOOD COUNT 4.52 M/mm3 (4.10-5.30); RED CELL DISTRIBUTION WIDTH 14.4 % (11.5-14.5); WHITE BLOOD COUNT 5.9 K/mm3 (4.8-10.8)
[2024-06-19 11:20] LABS: ALBUMIN 3.6 g/dL (3.4-4.8)
[2024-06-19 11:22] LABS: CALCIUM 9.6 mg/dL (8.3-10.5)
[2024-06-19 11:23] LABS: TOTAL PROTEIN 6.3 g/dL (6.2-8.1)
[2024-06-19 11:25] LABS: TOTAL BILIRUBIN 0.5 mg/dL (0.2-1.2)
== END ==
LOC: LAB 10:57
PROVIDERS: Internal Medicine
DX: C65.2 Malignant neoplasm of left renal pelvis (principal)

== ENCOUNTER → 2024-07-03 | Outpatient (CLI) | payer MEDICARE ==
[2024-07-03 10:25] LABS: BASO # 0.05 K/mm3 (0.02-0.10); EOS # 0.18 K/mm3 (0.04-0.40); EOS % 2.8 % (1.0-5.0); HEMATOCRIT 41.6 % (37.0-47.0); LYMPH# 1.55 K/mm3 (1.50-4.00); MEAN CELL VOLUME 92 fl (78-100); MEAN CORPUSCULAR HEMOGLOBIN 29 pg (27-31); MEAN CORPUSCULAR HGB CONC 31 g/dL (33-37); MEAN PLATELET VOLUME 10.1 fl (7.4-10.4); MONO # 0.98 K/mm3 (0.20-0.80); NEU # 3.63 K/mm3 (1.40-6.50); PLATELET COUNT 210 K/mm3 (130-400); RED BLOOD COUNT 4.53 M/mm3 (4.10-5.30); RED CELL DISTRIBUTION WIDTH 14.4 % (11.5-14.5); WHITE BLOOD COUNT 6.4 K/mm3 (4.8-10.8)
[2024-07-03 10:26] LABS: ALBUMIN 3.8 g/dL (3.4-4.8)
[2024-07-03 10:27] LABS: CALCIUM 9.3 mg/dL (8.3-10.5)
[2024-07-03 10:29] LABS: TOTAL PROTEIN 6.4 g/dL (6.2-8.1)
[2024-07-03 10:30] LABS: TOTAL BILIRUBIN 0.5 mg/dL (0.2-1.2)
== END ==
LOC: LAB 10:11
PROVIDERS: Internal Medicine
DX: C65.2 Malignant neoplasm of left renal pelvis (principal)

== ENCOUNTER → 2024-07-17 | Outpatient (CLI) | payer MEDICARE ==
[2024-07-17 13:43] LABS: BASO # 0.06 K/mm3 (0.02-0.10); EOS # 0.28 K/mm3 (0.04-0.40); EOS % 5.5 % (1.0-5.0); HEMATOCRIT 41.1 % (37.0-47.0); LYMPH# 1.39 K/mm3 (1.50-4.00); MEAN CELL VOLUME 91 fl (78-100); MEAN CORPUSCULAR HEMOGLOBIN 29 pg (27-31); MEAN CORPUSCULAR HGB CONC 32 g/dL (33-37); MEAN PLATELET VOLUME 9.6 fl (7.4-10.4); MONO # 0.78 K/mm3 (0.20-0.80); NEU # 2.54 K/mm3 (1.40-6.50); PLATELET COUNT 174 K/mm3 (130-400); RED CELL DISTRIBUTION WIDTH 14.6 % (11.5-14.5); WHITE BLOOD COUNT 5.1 K/mm3 (4.8-10.8)
[2024-07-17 13:47] LABS: ALBUMIN 3.8 g/dL (3.4-4.8)
[2024-07-17 13:48] LABS: CALCIUM 9.4 mg/dL (8.3-10.5)
[2024-07-17 13:49] LABS: TOTAL PROTEIN 6.5 g/dL (6.2-8.1)
[2024-07-17 13:51] LABS: TOTAL BILIRUBIN 0.8 mg/dL (0.2-1.2)
== END ==
LOC: LAB 13:17
PROVIDERS: Internal Medicine
DX: C65.2 Malignant neoplasm of left renal pelvis (principal)

== ENCOUNTER → 2024-10-02 | Outpatient (CLI) | payer MEDICARE, BC ==
[2024-10-02 09:57] LABS: TOTAL PROTEIN 7.4 g/dL (6.2-8.1)
[2024-10-02 09:59] LABS: TOTAL BILIRUBIN 0.9 mg/dL (0.2-1.2)
[2024-10-02 10:04] LABS: MAGNESIUM 2.12 mg/dL (1.60-2.60)
== END ==
LOC: LAB 09:38
PROVIDERS: Internal Medicine
DX: I25.10 Atherosclerotic heart disease of native coronary artery without angina pectoris (principal)

== ENCOUNTER → 2024-10-07 | Outpatient (REF) | payer MEDICARE, BC ==
[2024-10-07 10:18] LABS: CALCIUM 9.9 mg/dL (8.3-10.5)
== END ==
LOC: LAB 09:38
PROVIDERS: Internal Medicine
DX: I25.10 Atherosclerotic heart disease of native coronary artery without angina pectoris (principal)

== ENCOUNTER → 2024-10-16 | Outpatient (REF) | payer MEDICARE, BC ==
[2024-10-16 09:56] LABS: CALCIUM 9.6 mg/dL (8.3-10.5)
== END ==
LOC: LAB 09:31
PROVIDERS: Internal Medicine
DX: I25.10 Atherosclerotic heart disease of native coronary artery without angina pectoris (principal)

== ENCOUNTER → 2024-11-21 | Outpatient (CLI) | payer MEDICARE, BC ==
[2024-11-21 11:52] LABS: BASO # 0.07 K/mm3 (0.02-0.10); EOS # 0.27 K/mm3 (0.04-0.40); EOS % 3.5 % (1.0-5.0); HEMATOCRIT 38.3 % (37.0-47.0); HEMOGLOBIN 11.8 g/dL (12.5-16.0); LYMPH# 1.02 K/mm3 (1.50-4.00); MEAN CELL VOLUME 87 fl (78-100); MEAN CORPUSCULAR HEMOGLOBIN 27 pg (27-31); MEAN CORPUSCULAR HGB CONC 31 g/dL (33-37); MEAN PLATELET VOLUME 9.6 fl (7.4-10.4); MONO # 0.88 K/mm3 (0.20-0.80); NEU # 5.36 K/mm3 (1.40-6.50); PLATELET COUNT 246 K/mm3 (130-400); RED BLOOD COUNT 4.38 M/mm3 (4.10-5.30); RED CELL DISTRIBUTION WIDTH 15.2 % (11.5-14.5); WHITE BLOOD COUNT 7.6 K/mm3 (4.8-10.8)
[2024-11-21 11:55] LABS: ALBUMIN 4.4 g/dL (3.4-4.8)
[2024-11-21 11:56] LABS: CALCIUM 10.9 mg/dL (8.3-10.5)
[2024-11-21 11:57] LABS: TOTAL PROTEIN 8.2 g/dL (6.2-8.1)
[2024-11-21 11:59] LABS: TOTAL BILIRUBIN 0.7 mg/dL (0.2-1.2)
[2024-11-21 12:04] LABS: MAGNESIUM 2.43 mg/dL (1.60-2.60)
== END ==
LOC: LAB 11:30
PROVIDERS: Internal Medicine
DX: E78.2 Mixed hyperlipidemia (principal); K90.9 Intestinal malabsorption, unspecified; I27.20 Pulmonary hypertension, unspecified

== ENCOUNTER → 2024-12-23 | Outpatient (CLI) | payer MEDICARE, BC | LOC: AMSURD 10:27 | DX: I48.0 Paroxysmal atrial fibrillation (principal) ==

== ENCOUNTER → 2024-12-26 | Outpatient (CLI) | payer MEDICARE ==
[2024-12-26 13:56] LABS: ALBUMIN 4.1 g/dL (3.4-4.8)
[2024-12-26 13:57] LABS: CALCIUM 10.3 mg/dL (8.3-10.5)
[2024-12-26 13:58] LABS: TOTAL PROTEIN 8.1 g/dL (6.2-8.1)
[2024-12-26 14:00] LABS: TOTAL BILIRUBIN 0.8 mg/dL (0.2-1.2)
== END ==
LOC: LAB 13:39
PROVIDERS: Internal Medicine
DX: C65.2 Malignant neoplasm of left renal pelvis (principal)

== ENCOUNTER → 2024-12-31 | Outpatient (CLI) | payer MEDICARE, BC ==
[~2024-12-31] MED LIST changes: +Iohexol 300 - 100 ML VIAL IV ONE; +NS 100 ML IV SCH
== END ==
LOC: RAD 10:19
DX: C65.2 Malignant neoplasm of left renal pelvis (principal); R91.8 Other nonspecific abnormal finding of lung field; I51.7 Cardiomegaly; Z90.5 Acquired absence of kidney
CPT/HCPCS: Q9967

== ENCOUNTER → 2025-02-02 | Outpatient (CLI) | payer MEDICARE, BC ==
[~2025-02-02] MED LIST changes: +ALDACTONE 25MG25 MG PO; +ATORVASTATIN CA40 MG PO; +CEPHALEXIN500 M2 PO; +COMPAZINE10 M2 PO; +DEXAMETHASONE/NE5 M1 OP; +EFFER-K 25 MEQ25 MEQ PEG; +ELIQUIS2.5 MG PO; +FLOMAX0.4 MG PO; +FUROSEMIDE20 MG PO; +GEMTESA75 MG PO; -Iohexol 300 - 100 ML VIAL IV ONE; +LOPRESSOR 225 MG/TAB PO; +METHENAMINE HIPP1 GM PO; +MIRALAX17 GM PO; -NS 100 ML IV SCH; +PANTOPRAZOLE SO40 MG PO; +ZAROXOLYN PO
[2025-02-02 17:06] LABS: BASO # 0.05 K/mm3 (0.02-0.10); EOS # 0.25 K/mm3 (0.04-0.40); EOS % 3.3 % (1.0-5.0); HEMATOCRIT 40.4 % (37.0-47.0); HEMOGLOBIN 13.1 g/dL (12.5-16.0); LYMPH# 1.37 K/mm3 (1.50-4.00); MEAN CELL VOLUME 82 fl (78-100); MEAN CORPUSCULAR HEMOGLOBIN 27 pg (27-31); MEAN CORPUSCULAR HGB CONC 32 g/dL (33-37); MEAN PLATELET VOLUME 9.9 fl (7.4-10.4); MONO # 1.35 K/mm3 (0.20-0.80); NEU # 4.64 K/mm3 (1.40-6.50); PLATELET COUNT 234 K/mm3 (130-400); RED BLOOD COUNT 4.93 M/mm3 (4.10-5.30); WHITE BLOOD COUNT 7.7 K/mm3 (4.8-10.8)
[2025-02-02 17:12] LABS: ALBUMIN 3.9 g/dL (3.4-4.8)
[2025-02-02 17:13] LABS: URINE APPEARANCE SLIGHTLY CLOUDY (CLEAR); URINE BILIRUBIN 1+ (NEGATIVE); URINE BLOOD TRACE-INTACT (NEGATIVE); URINE COLOR YELLOW (YELLOW); URINE GLUCOSE NEGATIVE (NEGATIVE); URINE KETONE NEGATIVE (NEGATIVE); URINE LEUKOCYTE ESTERASE TRACE (NEGATIVE); URINE NITRATE NEGATIVE (NEGATIVE); URINE PROTEIN(semi-quant) 1+ (NEGATIVE)
[2025-02-02 17:14] LABS: CALCIUM 10.3 mg/dL (8.3-10.5)
[2025-02-02 17:15] LABS: TOTAL PROTEIN 8.9 g/dL (6.2-8.1)
[2025-02-02 17:17] LABS: TOTAL BILIRUBIN 4.7 mg/dL (0.2-1.2)
[2025-02-02 17:21] LABS: MAGNESIUM 2.39 mg/dL (1.60-2.60)
== END ==
LOC: LAB 16:46
PROVIDERS: Internal Medicine
DX: R10.84 Generalized abdominal pain (principal)

== ENCOUNTER → 2025-02-24 | Outpatient (CLI) | payer MEDICARE, BC | LOC: RAD 09:18 | DX: R17 Unspecified jaundice (principal); Z90.5 Acquired absence of kidney; Z90.49 Acquired absence of other specified parts of digestive tract ==